=== PATIENT | female | born 1985 | race Two or more races ===

== ENCOUNTER 2020-03-31 06:07 | Day surgery (SDC) | payer OTHER ==
[~2020-03-31 06:07] MED LIST: ZOFRAN4 MG PO
== END 2020-03-31 15:45 | disposition home or self-care (01) ==
LOC: CIR.AMB 06:07
PROVIDERS: ATTEND Obstetrics & Gynecology Maternal & Fetal Medicine
DX: O34.32 Maternal care for cervical incompetence, second trimester (principal); Z3A.14 14 weeks gestation of pregnancy; Z20.828 Contact with and (suspected) exposure to other viral communicable diseases

== ENCOUNTER 2020-08-05 14:06 | Outpatient (CLI) | payer OTHER | END 2020-08-05 14:59 | disposition home or self-care (01) | LOC: NST 14:06 | PROVIDERS: ATTEND Obstetrics & Gynecology | DX: Z34.83 Encounter for supervision of other normal pregnancy, third trimester (principal) ==

== ENCOUNTER 2020-09-06 06:01 | Inpatient (IN) | payer OTHER ==
[~2020-09-06] VITALS: Ht 149.9 cm; Wt 60.3 kg
== END 2020-09-08 18:16 | disposition home or self-care (01) | DRG 807 ==
LOC: OBS/DEL 06:01 → OB/GYN 09:01 → LDR 09:01 → OB/GYN 13:01
PROVIDERS: ADMIT Obstetrics & Gynecology; ATTEND Obstetrics & Gynecology
PROC: 10E0XZZ Delivery of Products of Conception, External Approach (ICD-10-PCS; principal; 2020-09-06)
PROC: 0HQ9XZZ Repair Perineum Skin, External Approach (ICD-10-PCS; 2020-09-06)
PROC: 4A1HXFZ Monitoring of Products of Conception, Cardiac Rhythm, External Approach (ICD-10-PCS; 2020-09-06)
DX: O70.0 First degree perineal laceration during delivery (principal); Z37.0 Single live birth; Z3A.37 37 weeks gestation of pregnancy; Z86.16 Personal history of COVID-19

== ENCOUNTER 2020-11-10 09:05 | Day surgery (SDC) | payer OTHER | END 2020-11-10 15:25 | disposition home or self-care (01) | LOC: CIR.AMB 09:05 | PROVIDERS: ATTEND Obstetrics & Gynecology | DX: Z30.2 Encounter for sterilization (principal); Z20.822 Contact with and (suspected) exposure to COVID-19 ==